=== PATIENT | female | born 1955 | race Caucasian/White ===

== ENCOUNTER 2019-06-18 22:48 | Emergency (ER) | payer MEDICAID ==
[2019-06-19] MEDS ORDERED: LORazepam 2 MG/ML SDV IM ONE (00:35)
--- NOTE | 2019-06-19 00:38 | EDM.PDOC ---
ED HPI GENERAL MEDICAL PROBLEM - General Chief Complaint: ENT Problem Stated Complaint: BLOODY NOSE WANT STOP BLEEDING Time Seen by Provider: 06/19/19 00:35 Source of Information: Reports: Patient, Family, RN Notes Reviewed History Limitations: Reports: No Limitations - History of Present Illness INITIAL COMMENTS - FREE TEXT/NARRATIVE: 64-year-old female presents emergency department today complaint of bloody nose , she has had nosebleeds in the past but not for several years. This was started about 8:00 this evening initially she was able to get it stopped but then returned just prior to going to bed. Also admits to being anxious no other symptoms - Related Data Allergies Allergy/AdvReac Type Severity Reaction Status Date / Time Penicillins Allergy Rash Verified 06/19/19 00:46 MINT Allergy Swelling Uncoded 06/19/19 00:46 Home Meds: Home Meds Metoprolol Tartrate 25 mg PO DAILY 06/19/19 [History] Pravastatin Sodium 10 mg PO DAILY 06/19/19 [History] hydroCHLOROthiazide [Hydrochlorothiazide] 12.5 mg PO DAILY 06/19/19 [History] Past Medical History HEENT History: Reports: Epistaxis Cardiovascular History: Reports: Hypertension Social & Family History - Tobacco Use Smoking Status *Q: Never Smoker ED ROS ENT - Review of Systems Review Of Systems: See Below Constitutional: Reports: No Symptoms HEENT: Reports: Nosebleed Respiratory: Reports: No Symptoms Cardiovascular: Reports: No Symptoms ED EXAM, ENT - Physical Exam Exam: See Below Text/Narrative:: Initially nursing staff had her blow her nose no scan was placed 10 minutes, by the time I have the opportunity to examine the patient's sclera is removed I do appreciate some dried blood around the nares I can't appreciate any bleeding mouth mucosa is moist and pink there's no erythema or exudate known soft palate I do not appreciate any blood in the posterior pharynx Exam Limited By: No Limitations General Appearance: Alert, WD/WN, No Apparent Distress Respiratory/Chest: No Respiratory Distress ED ENT PROCEDURES - Epistaxis Procedure Indication: Epistaxis Recent anticoagulants/antiplatlets: No Uncontrolled HTN: No Recent septal/nasal surgery: No Site of bleeding: Left Nare Clearing of clots: Patient Blew Nose Posterior packing: Long Inflatable Nasal Tampon Local Anesthetic Volume: 5cc Complications: No Course - Vital Signs Last Recorded V/S: Last Vital Signs Temp 97.5 F 06/19/19 00:05 Pulse 100 06/19/19 01:45 Resp 12 06/19/19 01:45 BP 168/103 H 06/19/19 01:45 Pulse Ox 98 06/19/19 01:45 - Orders/Labs/Meds Meds: Medications Discontinued Medications Generic Name Dose Route Start Last Admin Trade Name Fernandez PRN Reason Stop Dose Admin Lorazepam 0.5 mg 06/19/19 00:35 06/19/19 00:57 Ativan IM 06/19/19 00:36 0.5 mg ONETIME ONE Administration - Re-Assessments/Exams Free Text/Narrative Re-Assessment/Exam: 06/19/19 01:23 Bleeding did start again Rhino Rocket was placed in the left nare Departure - Departure Time of Disposition: 02:01 Disposition: Home, Self-Care 01 Condition: Fair Clinical Impression: Epistaxis - Discharge Information Instructions: Nosebleed, Adult Referrals: Anu Guerrero PA [Primary Care Provider] - Forms: ED Department Discharge Additional Instructions: Follow-up with your primary care in the next couple days for reevaluation, consider consultation with ear nose and throat - Assessment/Plan Plan: Assessment Acuity = acute Site and laterality = left nares epistaxis Etiology = unknown Manifestations = none Location of injury = Home Lab values = none Plan Rhino Rocket was placed 5 mL follow-up follow-up with primary care in 2 days for reevaluation This note was dictated using [employer] voice recognition software please call with any questions on syntax or grammar.
== END 2019-06-19 02:29 | disposition home or self-care (01) ==
LOC: JP.ED 22:48
DX: R04.0 Epistaxis (principal); I10 Essential (primary) hypertension; Z88.0 Allergy status to penicillin; Z91.018 Allergy to other foods; Z79.899 Other long term (current) drug therapy
CPT/HCPCS: 30903; 99282; J2060

== ENCOUNTER 2021-02-07 01:01 | Emergency (ER) | payer MEDICAID ==
--- NOTE | 2021-02-07 01:48 | EDM.PDOC ---
ED HPI GENERAL MEDICAL PROBLEM - General Chief Complaint: ENT Problem Stated Complaint: BLOODY NOSE Time Seen by Provider: 02/07/21 01:37 Source of Information: Reports: Patient, Family, RN Notes Reviewed History Limitations: Reports: No Limitations - History of Present Illness INITIAL COMMENTS - FREE TEXT/NARRATIVE: 65-year-old female presents emergency department a complaint of nosebleed she states it started about 3 hours prior has been unable to get it stopped she had a nosebleed about 2 years ago on the left side denies pain Pain Score (Numeric/FACES): 0 - Related Data Allergies Allergy/AdvReac Type Severity Reaction Status Date / Time Penicillins Allergy Rash Verified 02/07/21 01:13 MINT Allergy Swelling Uncoded 02/07/21 01:13 Home Meds: Home Meds Metoprolol Tartrate 25 mg PO DAILY 06/19/19 [History] Pravastatin Sodium 10 mg PO DAILY 06/19/19 [History] hydroCHLOROthiazide [Hydrochlorothiazide] 12.5 mg PO DAILY 06/19/19 [History] Aspirin [Adult Low Dose Aspirin EC] 81 mg PO DAILY 02/07/21 [History] Multivitamin [Multi-Day Vitamins] 1 tab PO DAILY 02/07/21 [History] Past Medical History HEENT History: Reports: Epistaxis, Impaired Vision, Other (See Below) Other HEENT History: glasses Cardiovascular History: Reports: High Cholesterol, Hypertension Gastrointestinal History: Reports: [employer] History: Reports: - Infectious Disease History Infectious Disease History: Reports: Chicken Pox - Past Surgical History Cardiovascular Surgical History: Reports: None Female Surgical History: Reports: Tubal Ligation Social & Family History - Tobacco Use Tobacco Use Status *Q: Never Tobacco User - Caffeine Use Caffeine Use: Reports: Coffee - Recreational Drug Use Recreational Drug Use: No ED ROS ENT - Review of Systems Review Of Systems: See Below Constitutional: Reports: No Symptoms HEENT: Reports: Nosebleed Respiratory: Reports: No Symptoms Cardiovascular: Reports: No Symptoms ED EXAM, ENT - Physical Exam Exam: See Below Exam Limited By: No Limitations General Appearance: Alert, WD/WN, No Apparent Distress Nose: Active Bleeding, Dried Blood ED ENT PROCEDURES - Epistaxis Procedure Indication: Epistaxis Recent anticoagulants/antiplatlets: No Uncontrolled HTN: No Recent septal/nasal surgery: No Site of bleeding: Left Nare Clearing of clots: Patient Blew Nose, Suction Ice pack to area: No Anterior Packing: Inflatable Nasal Tampon Posterior packing: Long Inflatable Nasal Tampon Local Anesthetic Volume: 5cc Complications: No Course - Vital Signs Last Recorded V/S: Last Vital Signs Temp 97.4 F 02/07/21 01:17 Pulse 127 H 02/07/21 01:17 Resp 17 02/07/21 01:17 BP 185/114 H 02/07/21 01:17 Pulse Ox 97 02/07/21 01:17 Departure - Departure Time of Disposition: 01:48 Disposition: Home, Self-Care 01 Condition: Fair Clinical Impression: Epistaxis - Discharge Information Instructions: Nosebleed, [id number] Referrals: Anu Guerrero PA [Primary Care Provider] - Additional Instructions: Recommend removal of inflatable nasal tampon in 3 days, recommend follow-up with ear nose and throat, call or return to the emergency department worsening symptoms Sepsis Event Note (ED) - Evaluation Sepsis Screening Result: No Definite Risk - Focused Exam Vital Signs: Vital Signs Temp Pulse Resp BP Pulse Ox 02/07/21 01:17 97.4 F 127 H 17 185/114 H 97 - Assessment/Plan Plan: Assessment Acuity = acute Site and laterality = epistaxis left nare Etiology = unknown Manifestations = none Location of injury = Home Lab values = none Plan Recommend follow-up with ear nose and throat for further evaluation removal of nose clamp in 3 days This note was dictated using [employer] voice recognition software please call with any questions on syntax or grammar.
== END 2021-02-07 02:13 | disposition home or self-care (01) ==
LOC: JP.ED 01:01
DX: R04.0 Epistaxis (principal); E78.00 Pure hypercholesterolemia, unspecified; I10 Essential (primary) hypertension; Z79.82 Long term (current) use of aspirin; Z79.899 Other long term (current) drug therapy; Z88.0 Allergy status to penicillin; Z91.018 Allergy to other foods
CPT/HCPCS: 30901; 99282; 99283

== ENCOUNTER 2024-07-11 17:59 | Emergency (ER) | payer MEDICAID, MEDICARE ==
[2024-07-11 18:48] LABS: HEMOGLOBIN 15.3 g/dL (11.2-15.5); MEAN CORPUSCULAR HEMOGLOBIN 31.8 pg (31.6-35.5); MEAN CORPUSCULAR HGB CONC 37.3 g/dL (31.6-35.5); MEAN CORPUSCULAR VOLUME 85.2 fL (81.4-99.0); PLATELET COUNT,PLT 63 K/uL (130-375); RED BLOOD CELL COUNT 4.81 M/uL (3.77-5.24); WHITE BLOOD CELL COUNT,WBC 1.8 K/uL (3.2-11.0)
[2024-07-11 19:08] LABS: A/G RATIO 0.9 (1.2-2.2); ALANINE AMINOTRANSFERASE,ALT 127 U/L (12-78); ALBUMIN 3.2 g/dL (3.4-5.0); ALKALINE PHOSPHATASE 71 U/L (46-116); ASPARTATE AMNIOTRANSFERASE,AST 100 U/L (15-37); BILIRUBIN TOTAL 1.2 mg/dL (0.2-1.0); BLOOD UREA NITROGEN,BUN 11 mg/dL (7-18); CALCIUM 8.2 mg/dL (8.5-10.1); CARBON DIOXIDE,CO2 26 mmol/L (21-32); CHLORIDE,CL 89 mmol/L (100-108); CREATININE 0.7 mg/dL (0.6-1.0); EST CRCL DRUG DOSING (CG) 70.18 mL/min; ESTIMATED GFR 95 mL/min (>60); GLUCOSE RANDOM 122 mg/dL (74-106); PROTEIN TOTAL,TP 6.7 g/dL (6.4-8.2); SODIUM,NA 126 mmol/L (140-148)
[2024-07-11 19:17] LABS: ATYPICAL LYMPHOCYTES FEW; BAND ABSOLUTE MAN 0.36 K/uL; BAND PERCENT MAN 20 % (5-11); LYMPHOCYTES ABSOLUTE MAN 0.47 K/uL (0.8-3.3); LYMPHOCYTES PERCENT MAN 26 % (24-44); NEUTROPHILS ABSOLUTE MAN 0.97 K/uL (1.0-7.6); SEG NEUTROPHILS PERCENT MAN 54 % (36-66)
[2024-07-11 19:32] LABS: LYME AB IgG Negative (Negative); LYME AB IgM Negative (Negative)
[2024-07-11] MEDS: Acetaminophen 500 MG Tab PO ONE (20:38)
== END 2024-07-11 21:17 | disposition home or self-care (01) ==
LOC: JP.ED 17:59
DX: A79.82 Anaplasmosis [A. phagocytophilum] (principal); I10 Essential (primary) hypertension; E78.00 Pure hypercholesterolemia, unspecified; K21.9 Gastro-esophageal reflux disease without esophagitis; Z79.899 Other long term (current) drug therapy; Z91.048 Other nonmedicinal substance allergy status; Z88.0 Allergy status to penicillin
CPT/HCPCS: 80053; 83605; 85025; 86618; 87468; 87469; 87484; 87798; 99284; A9270; U0002